=== PATIENT | female | born 1995 | race Caucasian/White ===

== ENCOUNTER 2021-05-05 19:48 | Inpatient (IN) ==
[2021-05-05 20:48] LABS: Urine Appearance Clear; Urine Bilirubin Negative (Negative); Urine Blood Negative (Negative); Urine Color Yellow; Urine Glucose Negative (Negative); Urine Ketones Negative (Negative); Urine Nitrite Negative (Negative); Urine Protein Negative (Negative); Urine Specific Gravity 1.004 (1.002-1.030); Urine Urobilinogen Negative (Negative)
[2021-05-05] MEDS ORDERED: Nicotine PATCH 14 MG/24 HR PATCH TRANSDERM ONE (20:58)
[2021-05-05 21:00] LABS: Urine Benzodiazepine Screen None Detected (None Detect); Urine Cannabinoids Screen None Detected (None Detect); Urine Opiates Screen None Detected (None Detect)
[2021-05-05 21:01] LABS: ABS Eosinophils 0.2 10^3/ul (0-0.6); ABS Lymphocytes 2.8 10^3/ul (1.0-4.8); ABS Monocytes 0.3 10^3/ul (0-0.8); ABS Neutrophils 4.7 10^3/ul (1.5-7.7); Eosinophil % 1.9 %; Hematocrit 40 % (35-47); Hemoglobin 13.7 g/dL (12.0-16.0); Lymphocyte % 35.4 %; Mean Corpuscular HGB Conc 34 g/dL (31-36); Mean Corpuscular Hemoglobin 32 pg (27-31); Mean Corpuscular Volume 94 fL (80-97); Mean Platelet Volume 8.8 fL (7.4-10.4); Platelet Count 280 10^3/uL (150-450); Red Blood Count 4.32 10^6 /uL (3.70-4.87); Red Cell Distribution Width 15 % (10-15)
[2021-05-05] MEDS ORDERED: LORazepam 2 mg VIAL 1 ml IM ONE (21:06)
[2021-05-05] MEDS ORDERED: diPHENhydraMINE IV 50 MG/ML 1 ml VIAL (BENADRYL) IM ONE (21:06)
[2021-05-05] MEDS ORDERED: Lorazepam PYXIS KEY PRN (21:06)
[2021-05-05] MEDS ORDERED: diPHENhydraMINE IV 50 MG/ML 1 ml VIAL (BENADRYL) ONE (21:07)
[2021-05-05] MEDS ORDERED: LORazepam 2 mg VIAL 1 ml ONE (21:07)
[2021-05-05 21:18] LABS: ALT 13 U/L (7-52); AST 19 U/L (13-39); Albumin 4.5 g/dL (3.2-5.2); Albumin/Globulin Ratio 1.4 (1-3); Alkaline Phosphatase 65 U/L (35-149); Anion Gap 12 mmol/L (2-11); Blood Urea Nitrogen 6 mg/dL (6-24); CO2 Carbon Dioxide 20 mmol/L (22-32); Calcium 9.3 mg/dL (8.6-10.3); Chloride 109 mmol/L (101-111); Globulin 3.3 g/dL (2-4); Glucose 92 mg/dL (70-100); Sodium 141 mmol/L (135-145); Total Protein 7.8 g/dL (6.4-8.9); eGFR CKD-EPI 93.6 (>60)
[2021-05-05 21:24] LABS: Acetaminophen < 15 mcg/mL; Alcohol, S 248 mg/dL (<13); Salicylate < 2.50 mg/dL (<30)
[2021-05-05 21:25] LABS: HCG Pregnancy < 0.60 mIU/mL
[2021-05-05 21:38] LABS: TSH Ultra Thyroid Stim Horm 0.15 mcIU/mL (0.34-5.60)
[2021-05-05] MEDS ORDERED: Haloperidol 5 mg/ml SDV IV/IM 5 MG/ML AMP IM ONE (22:22)
[2021-05-06] MEDS ORDERED: Al Hydrox/Mg Hydrox/Simet LIQ 30 ML UDC PO PRN (09:00)
[2021-05-06 15:02] LABS: Vitamin B12 262 pg/mL (180-914)
[2021-05-06 15:03] LABS: Folate 11.25 ng/mL (5.90-24.80)
[2021-05-06 15:06] LABS: Vitamin D Total 25(OH) 31.3 ng/mL (20-50)
[2021-05-07] MEDS: Nicotine PATCH 21 MG/24 HR PATCH TRANSDERM SCH ×2 (09:16→10:49)
[2021-05-07] MEDS: Nicotine GUM 4MG FRUIT FLAVOR PO PRN (19:53)
[2021-05-08 07:47] VITALS: BP 115/71
[2021-05-08] MEDS: Nicotine PATCH 21 MG/24 HR PATCH TRANSDERM SCH (07:58)
[2021-05-08] MEDS: Nicotine GUM 4MG FRUIT FLAVOR PO PRN (10:09)
== END 2021-05-08 12:05 | disposition home or self-care (01) | DRG 775 ==
LOC: ED 19:48 → BSU 05-06 13:24
PROVIDERS: ADMIT Psychiatry & Neurology Psychiatry; ATTEND Psychiatry & Neurology Psychiatry